=== PATIENT | female | born 1995 | race Caucasian/White ===

== ENCOUNTER 2017-05-14 16:12 | Emergency (ER) | payer MEDICAID, OTHER ==
[~2017-05-14] VITALS: Ht 157.5 cm; Wt 53.0 kg
[~2017-05-14 16:12] MED LIST: CIPROFLOXACIN; FAMOTIDINE; LANSOPRAZOLE; MINTOX
[2017-05-14] MEDS ORDERED: ACETAMINOPHEN 500MG TABLET PO ONE (20:15)
[2017-05-14 20:48] VITALS: BP 105/68
== END 2017-05-14 20:48 | disposition home or self-care (01) ==
LOC: ER 20:06
DX: B34.9 Viral infection, unspecified (principal); H10.021 Other mucopurulent conjunctivitis, right eye
CPT/HCPCS: 81025; 93005; 99283

== ENCOUNTER 2017-09-24 16:40 | Emergency (ER) | payer MEDICAID ==
[~2017-09-24] VITALS: Ht 154.9 cm; Wt 58.0 kg
[2017-09-24 19:24] LABS: BASOPHILS % 0.5 % (0.0-2.0); EOSINOPHILS % 0.4 % (0.0-5.0); HEMATOCRIT. 32.2 % (36.0-48.0); HEMOGLOBIN. 10.4 g/dL (12.0-16.0); LYMPHOCYTES % 15.1 % (20.0-50.0); MEAN CORPUSCULAR HEMOGLOBIN 24.4 pg (28.0-32.0); MEAN CORPUSCULAR VOLUME 75.9 fL (81.0-99.0); MEAN PLATELET VOLUME 8.1 fl (7.4-10.4); MONOCYTES % 4.6 % (2.0-8.0); NEUTROPHILS % 79.4 % (40.0-76.0); PLATELET 246 x1000/uL (130-400); RED BLOOD CELL COUNT 4.25 mill/uL (4.2-5.4); RED CELL DISTRIBUTION WIDTH 17.7 % (11.6-14.6)
[2017-09-24 19:29] LABS: CHLORIDE 102 mEq/L (98-107)
[2017-09-24 19:32] LABS: CARBON DIOXIDE 26 mEq/L (21-32)
[2017-09-24 19:33] LABS: HCG SCREEN POSITIVE
[2017-09-24 19:53] LABS: B-HCG QUANTITATIVE 66556 mIU/mL (<3)
[2017-09-24 20:46] LABS: CLARITY URINE CLEAR (CLEAR); COLOR URINE YELLOW (YELLOW); GLUCOSE URINE NEGATIVE (NEGATIVE); KETONES URINE NEGATIVE (NEGATIVE); LEUKOCYTE ESTERASE URINE 1+ (NEGATIVE); NITRITE URINE NEGATIVE (NEGATIVE); OCCULT BLOOD URINE NEGATIVE (NEGATIVE); PH URINE 5.5 (4.5-8.0); PROTEIN URINE NEGATIVE (NEGATIVE); SPECIFIC GRAVITY URINE 1.017 (1.005-1.030); UROBILINOGEN URINE 0.2 E.U./dL (0.2-1.0)
[2017-09-25 01:44] VITALS: BP 105/62
== END 2017-09-25 02:10 | disposition home or self-care (01) ==
LOC: ER 19:00
DX: O21.9 Vomiting of pregnancy, unspecified (principal); Z3A.08 8 weeks gestation of pregnancy
CPT/HCPCS: 36415; 76801; 80053; 81001; 83690; 84702; 84703; 85025; 85610; 86850; 86900; 99285

== ENCOUNTER 2019-06-23 12:19 | Emergency (ER) | payer MEDICAID ==
[~2019-06-23] VITALS: Ht 157.5 cm; Wt 61.0 kg
[2019-06-23 14:29] LABS: CLARITY URINE CLOUDY (CLEAR); COLOR URINE RED (YELLOW); KETONES URINE NEGATIVE (NEGATIVE); LEUKOCYTE ESTERASE URINE 3+ (NEGATIVE); NITRITE URINE NEGATIVE (NEGATIVE); OCCULT BLOOD URINE 3+ (NEGATIVE); PH URINE 6.5 (4.5-8.0); PROTEIN URINE 1+ (NEGATIVE); SPECIFIC GRAVITY URINE 1.009 (1.005-1.030); UROBILINOGEN URINE 0.2 E.U./dL (0.2-1.0)
[2019-06-23 15:24] VITALS: BP 118/78
== END 2019-06-23 15:24 | disposition home or self-care (01) ==
LOC: ER 12:19
DX: N39.0 Urinary tract infection, site not specified (principal); R31.9 Hematuria, unspecified; D64.9 Anemia, unspecified; Z90.49 Acquired absence of other specified parts of digestive tract; Z87.19 Personal history of other diseases of the digestive system
CPT/HCPCS: 81003; 81025; 87077; 87186; 99283

== ENCOUNTER 2019-06-28 10:56 | Emergency (ER) | payer MEDICAID ==
[~2019-06-28] VITALS: Ht 157.5 cm; Wt 59.0 kg
[2019-06-28 11:08] VITALS: BP 118/68
== END 2019-06-28 12:25 | disposition home or self-care (01) ==
LOC: ER 10:56
DX: M72.2 Plantar fascial fibromatosis (principal); D64.9 Anemia, unspecified; Z90.49 Acquired absence of other specified parts of digestive tract
CPT/HCPCS: 99282

== ENCOUNTER 2019-10-21 12:25 | Emergency (ER) | payer MEDICAID ==
[~2019-10-21] VITALS: Ht 157.5 cm; Wt 62.0 kg
[2019-10-21 15:28] LABS: CLARITY URINE CLOUDY (CLEAR); COLOR URINE YELLOW (YELLOW); KETONES URINE 1+ (NEGATIVE); LEUKOCYTE ESTERASE URINE 3+ (NEGATIVE); NITRITE URINE NEGATIVE (NEGATIVE); OCCULT BLOOD URINE 3+ (NEGATIVE); PROTEIN URINE TRACE (NEGATIVE); UROBILINOGEN URINE 0.2 E.U./dL (0.2-1.0)
[2019-10-21 16:07] LABS: BASOPHILS % 0.4 % (0.0-2.0); EOSINOPHILS % 0.2 % (0.0-5.0); HEMATOCRIT. 30.8 % (36.0-48.0); HEMOGLOBIN. 9.9 g/dL (12.0-16.0); LYMPHOCYTES % 17.8 % (20.0-50.0); MEAN CORPUSCULAR HEMOGLOBIN 24.1 pg (28.0-32.0); MEAN PLATELET VOLUME 8.4 fl (7.4-10.4); MONOCYTES % 4.4 % (2.0-8.0); NEUTROPHILS % 77.2 % (40.0-76.0); PLATELET 264 x1000/uL (130-400); RED BLOOD CELL COUNT 4.11 mill/uL (4.2-5.4); RED CELL DISTRIBUTION WIDTH 17.5 % (11.6-14.6)
[2019-10-21 16:12] LABS: CHLORIDE 107 mEq/L (98-107)
[2019-10-21 16:36] LABS: B-HCG QUANTITATIVE 13513 mIU/mL (<3)
[2019-10-21 17:31] VITALS: BP 125/85
== END 2019-10-21 17:57 | disposition home or self-care (01) ==
LOC: ER 12:25
DX: O20.0 Threatened abortion (principal); O23.42 Unspecified infection of urinary tract in pregnancy, second trimester; O99.012 Anemia complicating pregnancy, second trimester; Z3A.01 Less than 8 weeks gestation of pregnancy; Z90.49 Acquired absence of other specified parts of digestive tract
CPT/HCPCS: 36415; 76801; 76817; 80053; 81003; 81025; 84702; 85025; 86850; 86900; 86901; 87086; 99284; Z7610

== ENCOUNTER 2019-11-08 17:43 | Emergency (ER) | payer MEDICAID ==
[~2019-11-08] VITALS: Ht 157.5 cm; Wt 61.0 kg
[2019-11-08] MEDS ORDERED: ACETAMINOPHEN 650MG/20.3ML UDC PO ONE (19:30)
[2019-11-08 20:35] VITALS: BP 116/74
== END 2019-11-08 20:39 | disposition home or self-care (01) ==
LOC: ER 17:43
DX: J10.1 Influenza due to other identified influenza virus with other respiratory manifestations (principal)
CPT/HCPCS: 87804; 99283

== ENCOUNTER 2020-05-26 14:05 | Emergency (ER) | payer MEDICAID ==
[~2020-05-26] VITALS: Ht 165.1 cm; Wt 180.0 kg
[2020-05-26] MEDS ORDERED: ACETAMINOPHEN 500MG TABLET PO NR (16:30)
[2020-05-26 20:00] VITALS: BP 114/70
== END 2020-05-26 20:00 | disposition home or self-care (01) ==
LOC: ER 14:12
DX: O26.893 Other specified pregnancy related conditions, third trimester (principal); S62.101A Fracture of unspecified carpal bone, right wrist, initial encounter for closed fracture; S62.502A Fracture of unspecified phalanx of left thumb, initial encounter for closed fracture; V49.59XA Passenger injured in collision with other motor vehicles in traffic accident, initial encounter; Y93.89 Activity, other specified; Y92.89 Other specified places as the place of occurrence of the external cause; Y99.8 Other external cause status; Z3A.36 36 weeks gestation of pregnancy
CPT/HCPCS: 29125; 73090; 73110; 73120; 76805; 99285

== ENCOUNTER 2020-05-27 11:40 | Emergency (ER) | payer MEDICAID ==
[~2020-05-27] VITALS: Ht 157.5 cm; Wt 71.0 kg
[2020-05-27 11:41] VITALS: BP 115/69
== END 2020-05-27 12:36 | disposition home or self-care (01) ==
LOC: ER 12:22
DX: Z48.00 Encounter for change or removal of nonsurgical wound dressing (principal)
CPT/HCPCS: 99281

== ENCOUNTER 2020-05-27 23:38 | Emergency (ER) | payer MEDICAID ==
[~2020-05-27] VITALS: Ht 157.5 cm; Wt 72.0 kg
[2020-05-27 23:52] VITALS: BP 109/68
== END 2020-05-28 01:06 | disposition left against medical advice (07) ==
LOC: ER 23:38
DX: M79.601 Pain in right arm (principal); Z53.21 Procedure and treatment not carried out due to patient leaving prior to being seen by health care provider

== ENCOUNTER 2024-10-22 11:56 | Emergency (ER) | payer MEDICAID, OTHER ==
[~2024-10-22] VITALS: Ht 162.6 cm; Wt 65.0 kg
[2024-10-22 12:03] VITALS: O2SAT 99
[2024-10-22] MEDS: IBUPROFEN 600MG TABLET PO NR (14:05)
[2024-10-22 14:23] VITALS: BP 120/65; PULSE 68; RESP 18; TEMP 36.72516; O2SAT 100
== END 2024-10-22 14:25 | disposition home or self-care (01) ==
LOC: ER 11:56
DX: S60.212A Contusion of left wrist, initial encounter (principal); S60.222A Contusion of left hand, initial encounter; Z90.49 Acquired absence of other specified parts of digestive tract; W01.0XXA Fall on same level from slipping, tripping and stumbling without subsequent striking against object, initial encounter; Y93.89 Activity, other specified; Y92.89 Other specified places as the place of occurrence of the external cause; Y99.8 Other external cause status
CPT/HCPCS: 73110; 73130; 99284